=== PATIENT | male | born 1965 | race Caucasian/White ===

== ENCOUNTER → 2016-03-21 | Day surgery (SDC) | payer OTHER ==
[2006-10-06 06:22] VITALS: BP 127/64
[~2016-03-21] MED LIST: ADVAIR 100-501 EACH INH; ADVAIR DISKUS 21 DSK; ALBUTEROL2.5 MG/3 M INH/SOL; ARTIFICIAL TEAR15 M8 OPH; AUGMENTIN 875 M1 TAB PO; BENADRYL ALLERG25 M2 PO; CIPRO500 M1 PO; CLINDAMYCIN HC300 M1 PO; CLONAZEPAM1 MG PO; CLOTRIMAZOLE15 GM TOP; CYCLOBENZAPRINE10 M1 PO; DEPAKOTE ER500 M1 PO; DILAUDID2 M1 PO; DILAUDID2 MG PO; DIVALPROEX SOD500 M3 PO; DIVALPROEX SOD500 MG PO; DOXYCYCLINE HY100 M2 PO; DOXYCYCLINE100 MG PO; GABAPENTIN300 MG PO; HYDROXYZINE HYD25 MG; IBUPROFEN800 M1 PO; KEFLEX500 MG PO; METHADONE H5 MG/5 ML PO; METHADONE10 MG/1 M2 PO; MYRBETRIQ25 M1 PO; NASONEX0.05 MG/Ac; NEXIUM40 M1 PO; NORVASC 5MG TAB5 MG PO; PERCOCET 10-321 EACH PO; PERCOCET 5-3251 EACH PO; SIMVASTATIN40 M1 PO; TRAZODONE HCL100 M1 PO; TRAZODONE HCL100 MG PO; VALACYCLOVIR HYD1 GM PO; VALACYCLOVIR1000 MG PO; VENTOLIN HFA18 GM INH; VIBRAMYCIN100 MG PO; VOLTAREN100 GM TOP; ZOCOR 40MG TAB40 MG PO
--- NOTE | 2016-03-21 13:34 | Operative Report ---
Operative/Inv Procedure Report Surgery Date: 03/21/16 Name of Procedure: Laparoscopic incarcerated incisional hernia repair with mesh Pre-Operative Diagnosis: 1. incarcerated incisional hernia 2. Left inguinal hernia Post-Operative Diagnosis: 1. Incarcerated incisional/port site hernia 2. No evidence of left inguinal hernia Estimated Blood Loss: scant Surgeon/Payroll Accounting Clerk: LIZETTE BASSETT,FRANCA Hutchins/Britton JJ Anesthesia: general endotracheal tube Implants: 9 cm Parietex mesh Operative Indication: 50-year-old male presents with pain at the epigastric region related to an incisional/port site hernia. On preoperative CT he had been told that there was a left inguinal hernia. By review of the images personally there is evidence tiny amount of fat in the inguinal canal. I recommended repair of his incisional hernia laparoscopically. I will evaluate his inguinal canal and repair will be performed appropriately Operative/Procedure Note Note: After consent he is brought to the operating room and laid supine. Gen. anesthesia was obtained and his abdomen was prepped and draped. The skin and left upper quadrant was after local anesthesia transverse incision made sharply. We gained access to the peritoneum using a 12 mm optical trocar. Pneumoperitoneum was achieved. 2, 5 mm ports were placed in the left lower quadrant after local anesthesia was instilled and under direct vision the camera. The abdomen was explored. Both inguinal regions were evaluated laparoscopically. There is no evidence of hernia defect on either side. Therefore repair of inguinal hernia was not performed. In the epigastric region near prior laparoscopic port site, there was this incisional hernia through the ossiform ligament. The falciform was taken down with cautery and a large amount of preperitoneal fat was extracted through the fascial defect back into the perineal cavity. We then cleared the prepared all fat around the fascial defect with cautery. The fascial defect measured 2 cm in greatest dimension. I chose a 9 cm round Parietex mesh to cover the defect. It was anchored in 4 quadrants with 0 Manquin-Mihir suture then hydrated rolled up and placed the perineal cavity. It was unraveled below the defect. The transfixion sutures were then brought up percutaneously in a sequential fashion. Once I was happy with the placement of mesh the sutures were tied down and trimmed. The mesh was then circumferentially tacked in a double crown fashion with the observe attacker. The ports were then delivered the gas allowed to escape. The fascia was closed with 0 Vicryl suture. Skin incisions closed with 4-0 Vicryl. Steri-Strips and sterile dressing applied. Sponge and needle counts are correct CC: PRINCE BASSETT,SHYANN
== END ==
LOC: STS 02:06
DX: K43.0 Incisional hernia with obstruction, without gangrene (principal); E78.00 Pure hypercholesterolemia, unspecified; J44.9 Chronic obstructive pulmonary disease, unspecified; E66.9 Obesity, unspecified; F17.200 Nicotine dependence, unspecified, uncomplicated; Z79.899 Other long term (current) drug therapy
CPT/HCPCS: J0131; J2250; J2405

== ENCOUNTER 2016-06-01 06:35 | Emergency (ER) | payer OTHER ==
[~2016-06-01] VITALS: Ht 175.3 cm; Wt 119.3 kg
[~2016-06-01 06:35] MED LIST changes: -BENADRYL ALLERG25 M2 PO; -CLOTRIMAZOLE15 GM TOP; -VIBRAMYCIN100 MG PO
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
[2016-06-01 07:39] LABS: ABSOLUTE BASOPHIL COUNT 0 /CUMM (0.0-0.2); ABSOLUTE EOSINOPHIL COUNT 0.2 /CUMM (0.0-0.7); ABSOLUTE GRANULOCYTE CT 3.2 /CUMM (1.4-6.5); ABSOLUTE LYMPH COUNT 2.3 /CUMM (1.2-3.4); ABSOLUTE MONOCYTE COUNT 0.6 /CUMM (0.10-0.60); BASOPHIL % 0.6 % (0.0-2.0); EOSINOPHIL % 2.6 % (0-5); HEMATOCRIT 39.3 % (42-52); MEAN CORPUSCULAR HGB 28.2 PG (27.0-31.0); MEAN CORPUSCULAR HGB CONC 32.7 G/DL (33.0-37.0); MEAN CORPUSCULAR VOLUME 86.4 FL (80.0-94.0); MEAN PLATELET VOLUME 9.9 FL (7.4-10.4); PLATELET COUNT 124 /CUMM (130-400); RBC DISTRIBUTION WIDTH 14.5 % (11.5-14.5); RED BLOOD CELL CT 4.55 /CUMM (4.70-6.10); WHITE BLOOD CELL COUNT 6.2 /CUMM (4.8-10.8)
[2016-06-01 10:13] VITALS: BP 132/78
--- NOTE | 2016-06-01 10:31 | ULTRASOUND REPORT ---
EXAMINATION: US TRIPLEX LOWER EXTREMITY, BILATERAL CLINICAL INFORMATION: Bilateral lower extremity edema. Postoperative hernia repair. COMPARISON: 09/04/2014. TECHNIQUE: Color-flow triplex imaging with spectral analysis and compression Doppler were performed on the bilateral lower extremities. Study somewhat limited due to the patient's pitting edema. FINDINGS: Respiratory variation, normal compression and augmented flow are noted throughout the bilateral lower extremities. The visualized common femoral vein, superficial femoral vein, profunda femoral vein, popliteal vein and midcalf peroneal and posterior tibial venous segments show no evidence of deep venous thrombosis. There is no Avendaño's cyst. IMPRESSION: Normal triplex scan without evidence of deep venous thrombosis involving the bilateral lower extremities. The examination is somewhat limited due to the patient's pitting edema in the lower extremities. If the patient has continued symptoms or concerns, follow-up triplex lower extremity sonography could be obtained in 5-7 days time.
[2016-06-01] MEDS ORDERED: PERCOCET 10-321 EACH PO (10:39)
== END 2016-06-01 10:52 ==
LOC: ERH 06:35
PROVIDERS: Emergency Medicine
DX: R60.0 Localized edema (principal); J44.9 Chronic obstructive pulmonary disease, unspecified; Z72.0 Tobacco use
CPT/HCPCS: 81003; 93970

== ENCOUNTER 2016-07-19 19:55 | Emergency (ER) | payer OTHER ==
[~2016-07-19] VITALS: Ht 175.3 cm; Wt 115.7 kg
[2016-07-19] MEDS ORDERED: PERCOCET 10-321 EACH PO (21:06)
[2016-07-19] MEDS ORDERED: VIBRAMYCIN100 MG PO (21:06)
[2016-07-19] MEDS ORDERED: BENADRYL ALLERG25 M2 PO (21:06)
[2016-07-19] MEDS ORDERED: CLOTRIMAZOLE15 GM TOP (21:06)
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
[2016-07-19 21:22] VITALS: BP 132/84
== END 2016-07-19 21:23 ==
LOC: ERH 19:55
DX: S91.212A Laceration without foreign body of left great toe with damage to nail, initial encounter (principal); S90.32XA Contusion of left foot, initial encounter; T36.95XA Adverse effect of unspecified systemic antibiotic, initial encounter; B35.3 Tinea pedis; W20.8XXA Other cause of strike by thrown, projected or falling object, initial encounter; Y92.9 Unspecified place or not applicable; Y93.9 Activity, unspecified

== ENCOUNTER 2016-08-24 20:36 | Emergency (ER) | payer OTHER ==
[~2016-08-24] VITALS: Ht 177.8 cm; Wt 113.4 kg
[~2016-08-24 20:36] MED LIST changes: +BENADRYL ALLERG25 M2 PO; +CLOTRIMAZOLE15 GM TOP; +VIBRAMYCIN100 MG PO
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
[2016-08-24] MEDS ORDERED: DILAUDID2 M1 PO (22:38)
[2016-08-24 23:24] VITALS: BP 117/67
== END 2016-08-24 22:45 ==
LOC: ERH 20:36
DX: R07.81 Pleurodynia (principal)
CPT/HCPCS: 71100-RT; 96372

== ENCOUNTER 2016-09-17 11:57 | Emergency (ER) | payer OTHER ==
[~2016-09-17] VITALS: Ht 175.3 cm; Wt 111.1 kg
[~2016-09-17 11:57] MED LIST changes: +CLONAZEPAM1 M2 PO; -CLONAZEPAM1 MG PO
[2016-09-17 12:05] VITALS: BP 124/77
[2016-09-17] MEDS ORDERED: PREDNISONE20 M1 PO (12:50)
[2016-09-17] MEDS ORDERED: HYDROXYZINE HCL25 M2 PO (12:50)
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
[2016-09-17] MEDS ORDERED: MIRALAX119 GM PO (12:52)
== END 2016-09-17 13:00 ==
LOC: ERH 11:57
DX: L30.9 Dermatitis, unspecified (principal); R63.0 Anorexia; Z00.00 Encounter for general adult medical examination without abnormal findings
CPT/HCPCS: 87389

== ENCOUNTER 2016-10-01 18:42 | Emergency (ER) | payer OTHER ==
[~2016-10-01] VITALS: Ht 175.3 cm; Wt 113.4 kg
[~2016-10-01 18:42] MED LIST changes: +HYDROXYZINE HCL25 M2 PO; +MIRALAX119 GM PO; +PREDNISONE20 M1 PO
[2016-10-01] MEDS ORDERED: VALACYCLOVIR1000 MG PO (19:53)
[2016-10-01] MEDS ORDERED: ADVAIR 100-501 EACH INH (19:53)
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
[2016-10-01] MEDS ORDERED: NEXIUM40 M1 PO (19:56)
[2016-10-01] MEDS ORDERED: PROVENTIL HFA6.7 GM INH (19:56)
--- NOTE | 2016-10-01 20:04 | RADIOLOGY REPORT ---
EXAMINATION: XR FINGER, RIGHT CLINICAL INFORMATION: Swelling status post puncture. COMPARISON: None. TECHNIQUE: A single view of the right hand and 2 views focused on the thumb. FINDINGS: There is circumferential soft tissue prominence involving the right thumb most notably in the region of the distal phalanx with cortical disruption identified dorsally and a 3 mm lucency in the proximal metadiaphyseal junction which may represent direct trauma and associated fracture, linear lucency appears to extend through the volar surface. Dependent on the age of puncture wound, an evolving abscess and osteomyelitis is possible though thought to be less likely. IMPRESSION: Soft tissue prominence with a likely puncture wound and fracture involving the distal phalanx of the right 1st distal phalanx.
[2016-10-01 20:33] LABS: ABSOLUTE BASOPHIL COUNT 0 /CUMM (0.0-0.2); ABSOLUTE EOSINOPHIL COUNT 0.2 /CUMM (0.0-0.7); ABSOLUTE GRANULOCYTE CT 4.5 /CUMM (1.4-6.5); ABSOLUTE LYMPH COUNT 1.5 /CUMM (1.2-3.4); ABSOLUTE MONOCYTE COUNT 0.6 /CUMM (0.10-0.60); BASOPHIL % 0.3 % (0.0-2.0); EOSINOPHIL % 2.2 % (0-5); GRANULOCYTE % 66.1 % (42.2-75.2); HEMATOCRIT 37.7 % (42-52); MEAN CORPUSCULAR HGB 29.1 PG (27.0-31.0); MEAN CORPUSCULAR HGB CONC 33.5 G/DL (33.0-37.0); MEAN PLATELET VOLUME 10.5 FL (7.4-10.4); PLATELET COUNT 111 /CUMM (130-400); RED BLOOD CELL CT 4.33 /CUMM (4.70-6.10); WHITE BLOOD CELL COUNT 6.8 /CUMM (4.8-10.8)
[2016-10-01] MEDS ORDERED: CLEOCIN HCL150 M1 PO (21:54)
[2016-10-01] MEDS ORDERED: DILAUDID2 M1 PO (21:54)
[2016-10-01 22:28] VITALS: BP 132/85
== END 2016-10-01 22:28 ==
LOC: ERH 18:42
PROVIDERS: Emergency Medicine
DX: S61.522A Laceration with foreign body of left wrist, initial encounter (principal); S62.522A Displaced fracture of distal phalanx of left thumb, initial encounter for closed fracture; L03.116 Cellulitis of left lower limb; X58.XXXA Exposure to other specified factors, initial encounter; Y92.9 Unspecified place or not applicable; Y93.9 Activity, unspecified
CPT/HCPCS: 73140-RT; 87040; 90471; 90714; 96374; 96375; J2930

== ENCOUNTER 2017-04-27 18:59 | Emergency (ER) | payer OTHER ==
[~2017-04-27 18:59] MED LIST changes: +CLEOCIN HCL150 M1 PO; +PROVENTIL HFA6.7 GM INH
[2017-04-27 19:49] LABS: ABSOLUTE BASOPHIL COUNT 0 /CUMM (0.0-0.2); ABSOLUTE EOSINOPHIL COUNT 0.1 /CUMM (0.0-0.7); ABSOLUTE GRANULOCYTE CT 2.9 /CUMM (1.4-6.5); ABSOLUTE LYMPH COUNT 1.8 /CUMM (1.2-3.4); ABSOLUTE MONOCYTE COUNT 0.6 /CUMM (0.10-0.60); BASOPHIL % 0.5 % (0.0-2.0); EOSINOPHIL % 2.2 % (0-5); GRANULOCYTE % 52.8 % (42.2-75.2); HEMATOCRIT 42.1 % (42-52); MEAN CORPUSCULAR HGB 28.5 PG (27.0-31.0); MEAN CORPUSCULAR HGB CONC 32.9 G/DL (33.0-37.0); MEAN CORPUSCULAR VOLUME 86.7 FL (80.0-94.0); MEAN PLATELET VOLUME 9.9 FL (7.4-10.4); PLATELET COUNT 150 /CUMM (130-400); RBC DISTRIBUTION WIDTH 13.9 % (11.5-14.5); RED BLOOD CELL CT 4.86 /CUMM (4.70-6.10); WHITE BLOOD CELL COUNT 5.4 /CUMM (4.8-10.8)
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
[2017-04-27 21:59] VITALS: BP 118/58
--- NOTE | 2017-04-27 22:31 | RADIOLOGY REPORT ---
EXAMINATION: XR CHEST CLINICAL INFORMATION: Cough, shortness of breath. Edema. COMPARISON: Chest x-ray 12/12/2016. Chest x-ray 08/24/2016 TECHNIQUE: 2 views of the chest were obtained. FINDINGS: There is mild central pulmonary vascular congestion with mild peribronchial cuffing. This is new since prior exam. No overt pulmonary edema. No infiltrate. No pleural effusion or pneumothorax. Heart size is normal. Cardiac and mediastinal contours are normal. Degenerative spondylosis of dorsal spine. IMPRESSION: Mild central pulmonary vascular congestion.
--- NOTE | 2017-04-27 23:15 | CT SCAN REPORT ---
EXAMINATION: CT ABDOMEN AND PELVIS WITHOUT CONTRAST CLINICAL INFORMATION: Diffuse back and abdominal pain COMPARISON: 06/30/2016 TECHNIQUE: Multidetector volumetric imaging was performed from the superior aspect of the liver through the pubic symphysis. Sagittal and coronal reformatted images were obtained on the technologist's workstation. DLP: 697 mGy-cm FINDINGS: LUNG BASES: The visualized lung bases are unremarkable. LIVER, GALLBLADDER, AND BILIARY TREE: The liver is normal in size, shape, and attenuation. No focal hepatic lesion or biliary ductal dilatation is present. The gallbladder is unremarkable with no evidence of radiopaque gallstones, gallbladder wall thickening, or obvious pericholecystic inflammatory changes. PANCREAS: There is mild fatty atrophy of the pancreatic parenchyma. No focal pancreatic lesion identified. SPLEEN: Unremarkable. ADRENAL GLANDS: Unremarkable. KIDNEYS AND URETERS: The kidneys are normal in size, shape, and attenuation. No hydronephrosis, hydroureter, or calculi seen. No perinephric stranding. BLADDER: Unremarkable. GASTROINTESTINAL TRACT: The stomach is unremarkable. The small bowel is normal in caliber. No obstruction. Normal appendix. No colonic wall thickening or inflammatory change. Mild to moderate colonic stool burden. No free air or free fluid. ABDOMINAL WALL: Small fat-containing left inguinal hernia. Status post ventral hernia repair without recurrent hernia at this location. LYMPH NODES: Normal. VASCULAR: Normal caliber aorta with mild atherosclerotic calcifications. PELVIC VISCERA: The prostate and seminal vesicles are unremarkable. OSSEOUS STRUCTURES: No acute or suspicious osseous abnormality. Degenerative changes of the spine. IMPRESSION: No acute findings of the abdomen or pelvis. Mild to moderate colonic stool burden.
== END 2017-04-27 23:49 ==
LOC: ERH 18:59
PROVIDERS: Physician Assistant
DX: M54.5 Low back pain (principal); R10.9 Unspecified abdominal pain
CPT/HCPCS: 71046; 74176; 81003; 96372; J1885

== ENCOUNTER 2017-10-31 18:33 | Emergency (ER) | payer OTHER ==
[~2017-10-31] VITALS: Ht 175.3 cm; Wt 114.3 kg
[~2017-10-31 18:33] MED LIST changes: +HYDROXYZINE HCL50 M1 PO; +MELOXICAM15 M1 PO; +MINOCYCLINE HCL50 M1 PO; +NYSTATIN100000 UNI PO; +VALTREX1000 MG PO
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
== END 2017-10-31 20:47 | disposition admitted as inpatient to this hospital (09) ==
LOC: ERH 18:33
DX: R51 Headache (principal); R07.9 Chest pain, unspecified; M79.89 Other specified soft tissue disorders
CPT/HCPCS: 93005; 93010; 99281

== ENCOUNTER 2017-11-04 19:26 | Emergency (ER) | payer OTHER ==
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
[2017-11-04 21:20] LABS: ABSOLUTE BASOPHIL COUNT 0 /CUMM (0.0-0.2); ABSOLUTE EOSINOPHIL COUNT 0.2 /CUMM (0.0-0.7); ABSOLUTE LYMPH COUNT 1.4 /CUMM (1.2-3.4); ABSOLUTE MONOCYTE COUNT 0.5 /CUMM (0.10-0.60); BASOPHIL % 0.6 % (0.0-2.0); EOSINOPHIL % 3.4 % (0-5); GRANULOCYTE % 58.5 % (42.2-75.2); HEMATOCRIT 43.1 % (42-52); MEAN CORPUSCULAR HGB 28.8 PG (27.0-31.0); MEAN CORPUSCULAR HGB CONC 33.2 G/DL (33.0-37.0); MEAN CORPUSCULAR VOLUME 86.7 FL (80.0-94.0); MEAN PLATELET VOLUME 10.4 FL (7.4-10.4); PLATELET COUNT 117 /CUMM (130-400); RBC DISTRIBUTION WIDTH 14.4 % (11.5-14.5); RED BLOOD CELL CT 4.97 /CUMM (4.70-6.10); WHITE BLOOD CELL COUNT 5.1 /CUMM (4.8-10.8)
--- NOTE | 2017-11-04 21:24 | ULTRASOUND REPORT ---
EXAMINATION: US TRIPLEX OF LOWER EXTREMITIES, BILATERAL CLINICAL INFORMATION: Edema. Swelling. COMPARISON: None TECHNIQUE: Color-flow triplex imaging with spectral analysis and compression Doppler were performed on the lower extremities. FINDINGS: Respiratory variation, normal compression and augmented flow are noted throughout the lower extremities. The visualized common femoral vein, superficial femoral vein, profunda femoral vein, popliteal vein and midcalf peroneal and posterior tibial venous segments show no evidence of deep venous thrombosis. There is no Avendaño's cyst. IMPRESSION: No evidence of deep venous thrombosis involving the bilateral lower extremities.
[2017-11-04] MEDS ORDERED: LASIX20 M1 PO (22:51)
[2017-11-04] MEDS ORDERED: LOTRIMIN AF12 GM TOP (22:51)
[2017-11-04] MEDS ORDERED: DOXYCYCLINE HY100 M4 PO (22:51)
[2017-11-04] MEDS ORDERED: KEFLEX500 M1 PO (22:51)
[2017-11-04 23:30] VITALS: BP 170/90
== END 2017-11-04 23:33 ==
LOC: ERH 19:26
PROVIDERS: Pediatrics
DX: R60.9 Edema, unspecified (principal); L03.115 Cellulitis of right lower limb; L03.116 Cellulitis of left lower limb; F17.210 Nicotine dependence, cigarettes, uncomplicated; E78.5 Hyperlipidemia, unspecified; J44.9 Chronic obstructive pulmonary disease, unspecified; J45.909 Unspecified asthma, uncomplicated
CPT/HCPCS: 93970; 96374; 96375; J0690; J1940